=== PATIENT | male | born 1935 | race Caucasian/White ===

== ENCOUNTER → 2019-03-14 | Day surgery (SDC) | payer MEDICARE ==
[~2019-03-14] MED LIST: Clopidogrel TAB* 300 MG PO ONE; Clopidogrel TAB* 75 MG PO ONE; Clopidogrel TAB* 75 MG PO SCH; Heparin 2 UNITS/ML IVPREMIX* 4,000 UNIT/2,000 ML BAG IV ONE; Heparin(*) 1000 UNIT/ML 10 ML VIAL CATH LAB IV ONE; Iodixanol 320 (CONTRAST) 100 ML SDV ONE; Lidocaine 1% INJ* 10 MG/ML 30 ML SDV ONE; Midazolam* 1 MG/ML 5 ML VIAL (5 MG) ONE; NS 0.9% 1000 ML** 1,000 ML IV SCH; fentaNYL* 50 MCG/ML 2 ML VIAL (100 MCG VIAL) ONE; hydrALAZINE IV* 20 MG/ML VIAL ONE; nitroGLYCERIN DRIP* 25,000 MCG/250 ML BTL ONE
[2019-03-14 11:47] LABS: BUN/Creatinine Ratio 19.4 (8-20); Calcium 9.8 mg/dL (8.6-10.3); EGFR Non-African American 47.1 (>60); Potassium 4.2 mmol/L (3.5-5.0)
[2019-03-14 21:53] VITALS: BP 132/81
== END | disposition home or self-care (01) ==
LOC: CHICATH 10:46
PROVIDERS: ATTEND Radiology Diagnostic Radiology
DX: I70.235 Atherosclerosis of native arteries of right leg with ulceration of other part of foot (principal); E11.621 Type 2 diabetes mellitus with foot ulcer; L97.419 Non-pressure chronic ulcer of right heel and midfoot with unspecified severity; Z79.84 Long term (current) use of oral hypoglycemic drugs; Z87.891 Personal history of nicotine dependence; J45.909 Unspecified asthma, uncomplicated; K57.92 Diverticulitis of intestine, part unspecified, without perforation or abscess without bleeding; N18.9 Chronic kidney disease, unspecified
CPT/HCPCS: 36415; 76937; 80048; 85347; A9270-GY; C1724; C1725; C1760; C1769; C1887; C1894; J0360; J1644; J2250; J3010